=== PATIENT | female | born 1985 | race Caucasian/White ===

== ENCOUNTER 2019-04-15 17:26 | Emergency (ER) | payer OTHER ==
[2019-04-15] MEDS ORDERED: NS 1,000 ML IV ONE (17:45)
[2019-04-15 18:16] LABS: PLATELET COUNT 261 10^3/uL (150-400)
[2019-04-15] MEDS ORDERED: IOPAMIDOL (ISOVUE-300) 100 ML BTL ONE (18:55)
--- NOTE | 2019-04-15 20:25 | EDPHY ---
H & P Stated Complaint: R side abdominal pain, lower back pain Time Seen by Provider: 04/15/19 17:38 HPI/ROS: Chief complaint: Abdominal pain History of present illness: This is a 33-year-old female who presents to the emergency department for evaluation of abdominal pain. She reports the onset of symptoms over the last 1-2 days. Initially she had pain in the middle and upper aspect of the abdomen, that pain resolved. She has subsequently developed pain in the right lower aspect of the abdomen. Pain is waxing and waning in nature. She has had some nausea without vomiting. She denies precipitating factors. She denies alleviating factors. She denies other associated signs or symptoms including no fevers, no diarrhea or constipation, no blood in the stool, no urinary symptoms, no abnormal vaginal discharge or discomfort. Review of systems: A 10 point review of systems was obtained and other than described above was negative - Personal History LMP (Females 10-55): 22-28 Days Ago Current Tetanus/Diphtheria Vaccine: No Current Tetanus Diphtheria and Acellular Pertussis (TDAP): No - Medical/Surgical History Hx Asthma: No Hx Chronic Respiratory Disease: No Hx Diabetes: No Hx Cardiac Disease: No Hx Renal Disease: No Hx Cirrhosis: No Hx Alcoholism: No Hx HIV/AIDS: No Hx Splenectomy or Spleen Trauma: No Other PMH: optical migraine, anxiety - Social History Smoking Status: Never smoked - Physical Exam Exam: General Appearance: Alert, no distress. Eyes: Pupils equal and round no pallor or injection. ENT, Mouth: Mucous membranes moist. Respiratory: There are no retractions, lungs are clear to auscultation. Cardiovascular: Regular rate and rhythm. Gastrointestinal: Bowel sounds are present and normal. Abdomen is soft. It is nondistended. There is tenderness in the lower quadrant, right greater than left. This includes over McBurney's point. There is no guarding or other peritoneal signs. Neurological: Alert and oriented x4. Strength and sensation intact and symmetrical. Skin: Warm and dry, no rashes. Musculoskeletal: Neck is supple non tender. Extremities are symmetrical, full range of motion. Psychiatric: Patient is oriented X 3, there is no agitation. Constitutional: Initial Vital Signs Temperature (C) 37.1 C 04/15/19 17:41 Heart Rate 88 04/15/19 17:41 Respiratory Rate 16 04/15/19 17:41 Blood Pressure 122/81 H 04/15/19 17:41 O2 Sat (%) 96 04/15/19 17:41 O2 Delivery Mode Room Air Allergies/Adverse Reactions: No Known Allergies Allergy (Unverified 04/15/19 17:43) Home Medications: Medication Instructions Recorded Levora-28 Tablet 04/15/19 Medical Decision Making - Diagnostics Imaging Results: Imaging Impressions Abdomen Ultrasound 04/15/19 17:45 Impression: Nonvisualization of the appendix with no secondary evidence of appendicitis. Findings discussed with TIFFANIE Martell 04/15/2019 at 18:48. Pelvic/Renal Ultrasound 04/15/19 17:45 Impression: 1. No acute findings. 2. 1.8 cm subserosal fibroid. Findings discussed with TIFFANIE Martell 04/15/2019 at 18:48. Abdomen CT 04/15/19 18:49 Impression: 1. Mesenteric stranding anterior to the ascending colon, possibly related to epiploic appendagitis, omental infarct, or less likely colitis. 2. Prominent tubular structure suggesting the appendix, measuring up to 1.2 cm without secondary evidence of appendicitis. 3. Mildly prominent ileocolic lymph nodes, likely reactive. 4. Hepatomegaly. 5. Additional findings, as above. Findings discussed with Elkin Lima PA-C on April 15, 2019 at 7:31 p.m. Imaging: Discussed imaging studies w/ on call Radiologist ED Course/Re-evaluation: Patient is discussed with my secondary supervising physician Dr. Lucia Orellana. Patient presents to the emergency department for abdominal pain. Baseline blood studies and urinalysis unremarkable. Ultrasound is obtained. Unremarkable although appendix is not identified. I did have a concerning suspicion for appendicitis, therefore CT scan was obtained. CT scan is discussed with the radiologist. This appears to be benign findings. No evidence of significant complications such as an appendicitis. Patient will be discharged home. Home care is discussed. She is asked to get a recheck within a day. She is given strict return precautions. Patient voiced understanding and agreement with plan. Differential Diagnosis: Included but not limited to colitis, appendicitis, diverticulitis, gastroenteritis, ovarian cyst, ovarian torsion, with associated complications, urinary tract disease - Data Points Laboratory Results: Laboratory Results 04/15/19 17:50 04/15/19 17:50 04/15/19 04/15/19 04/15/19 19:30 17:50 17:50 WBC RBC Hgb Hct MCV MCH MCHC RDW Plt Count MPV Neut % (Auto) Lymph % (Auto) Mcminn % (Auto) Eos % (Auto) Baso % (Auto) Nucleat RBC Rel Count Absolute Neuts (auto) Absolute Lymphs (auto) Absolute Monos (auto) Absolute Eos (auto) Absolute Basos (auto) Absolute Nucleated RBC Immature Gran % Immature Gran # Sodium Potassium Chloride Carbon Dioxide Anion Gap BUN Creatinine Estimated GFR Glucose Calcium Total Bilirubin 0.9 mg/dL mg/dL (0.1-1.4) Conjugated Bilirubin 0.1 mg/dL mg/dL (0.0-0.5) Unconjugated Bilirubin 0.8 mg/dL mg/dL (0.0-1.1) AST 19 IU/L IU/L (14-46) ALT 20 IU/L IU/L (9-52) Alkaline Phosphatase 50 IU/L IU/L (38-126) Total Protein 6.8 g/dL g/dL (6.3-8.2) Albumin 4.0 g/dL g/dL (3.5-5.0) Lipase 77 IU/L IU/L (23-300) Beta HCG, Qual NEGATIVE Urine Color PALE YELLOW Urine Appearance CLEAR Urine pH 6.0 (5.0-7.5) Ur Specific Thornton 1.016 (1.002-1.030) Urine Protein NEGATIVE (NEGATIVE) Urine Ketones TRACE H (NEGATIVE) Urine Blood 1+ H (NEGATIVE) Urine Nitrate NEGATIVE (NEGATIVE) Urine Bilirubin NEGATIVE (NEGATIVE) Urine Urobilinogen NEGATIVE EU EU (0.2-1.0) Ur Leukocyte Esterase NEGATIVE (NEGATIVE) Urine RBC 1-3 /hpf /hpf (0-3) Urine WBC 0-1 /hpf /hpf (0-3) Ur Epithelial Cells NONE SEEN /lpf /lpf (NONE-1+) Urine Glucose NEGATIVE (NEGATIVE) 04/15/19 04/15/19 17:50 17:50 WBC 7.32 10^3/uL 10^3/uL (3.80-9.50) RBC 4.20 10^6/uL 10^6/uL (4.18-5.33) Hgb 13.3 g/dL g/dL (12.6-16.3) Hct 39.3 % % (38.0-47.0) MCV 93.6 fL fL (81.5-99.8) MCH 31.7 pg pg (27.9-34.1) MCHC 33.8 g/dL g/dL (32.4-36.7) RDW 12.2 % % (11.5-15.2) Plt Count 261 10^3/uL 10^3/uL (150-400) MPV 10.2 fL fL (8.7-11.7) Neut % (Auto) 66.9 % % (39.3-74.2) Lymph % (Auto) 25.5 % % (15.0-45.0) Mcminn % (Auto) 5.9 % % (4.5-13.0) Eos % (Auto) 0.7 % % (0.6-7.6) Baso % (Auto) 0.5 % % (0.3-1.7) Nucleat RBC Rel Count 0.0 % % (0.0-0.2) Absolute Neuts (auto) 4.89 10^3/uL 10^3/uL (1.70-6.50) Absolute Lymphs (auto) 1.87 10^3/uL 10^3/uL (1.00-3.00) Absolute Monos (auto) 0.43 10^3/uL 10^3/uL (0.30-0.80) Absolute Eos (auto) 0.05 10^3/uL 10^3/uL (0.03-0.40) Absolute Basos (auto) 0.04 10^3/uL 10^3/uL (0.02-0.10) Absolute Nucleated RBC 0.00 10^3/uL 10^3/uL (0-0.01) Immature Gran % 0.5 % % (0.0-1.1) Immature Gran # 0.04 10^3/uL 10^3/uL (0.00-0.10) Sodium 138 mEq/L mEq/L (135-145) Potassium 3.9 mEq/L mEq/L (3.5-5.2) Chloride 105 mEq/L mEq/L (97-110) Carbon Dioxide 20 mEq/l L mEq/l (22-31) Anion Gap 13 mEq/L mEq/L (6-14) BUN 13 mg/dL mg/dL (7-23) Creatinine 0.8 mg/dL mg/dL (0.6-1.0) Estimated GFR > 60 Glucose 81 mg/dL mg/dL (70-100) Calcium 9.1 mg/dL mg/dL (8.5-10.4) Total Bilirubin Conjugated Bilirubin Unconjugated Bilirubin AST ALT Alkaline Phosphatase Total Protein Albumin Lipase Beta HCG, Qual Urine Color Urine Appearance Urine pH Ur Specific Thornton Urine Protein Urine Ketones Urine Blood Urine Nitrate Urine Bilirubin Urine Urobilinogen Ur Leukocyte Esterase Urine RBC Urine WBC Ur Epithelial Cells Urine Glucose Medications Given: Discontinued Medications Hydrocodone Bitart/Acetaminophen (Gur[place] 5/325mg Prepack#6) 1 btl TAKEHOME EDNOW ONE Stop: 04/15/19 20:27 Last Admin: 04/15/19 21:02 Dose: 1 btl Sodium Chloride (Ns) 1,000 mls @ 0 mls/hr IV EDNOW ONE; Wide Open PRN Reason: Protocol Stop: 04/15/19 17:46 Last Admin: 04/15/19 17:58 Dose: 1,000 mls Departure - Departure Disposition: Home, Routine, Self-Care Clinical Impression: Abdominal pain Qualifiers: Abdominal location: lower abdomen, unspecified Qualified Code(s): R10.30 - Lower abdominal pain, unspecified Condition: Good Instructions: Hydrocodone/Acetaminophen (By mouth), Acute Abdominal Pain (ED) Additional Instructions: Follow-up with a primary care doctor tomorrow for recheck In regards to pain control see the following: Use ibuprofen [600] mg [3] times a day for the next 2-3 days for pain In addition You have been prescribed [Gurabo] for pain. [Gurabo] contains Tylenol, do not take extra Tylenol/acetaminophen/Apap with it. It is sedating. Please let your primary care doctor know that there are some lung nodules, and decide with them if you need to have these followed If symptoms worsen or new symptoms develop return to the emergency room for recheck Referrals: Rosalba Sampson MD [Primary Care Provider] - As per Instructions
[2019-04-15] MEDS ORDERED: HYDROCOD/APAP 5/325 PREPACK#6 BTL TAKEHOME ONE (20:26)
[2019-04-15 21:05] VITALS: BP 114/79
== END 2019-04-15 21:05 | disposition home or self-care (01) ==
DX: R10.31 Right lower quadrant pain (principal); E86.9 Volume depletion, unspecified
CPT/HCPCS: Q9967